=== PATIENT | female | born 1940 | race Two or more races ===

== ENCOUNTER → 2017-09-11 | Day surgery (SDC) | payer MEDICARE, MEDICAID ==
[~2017-09-11] MED LIST: CEFAZOLIN SODIUM/DEXTROSE,ISO 50 ML IV ONE; FENTANYL PF 100MCG/2ML AMPUL ONE; LIDOCAINE 0.5% HCL 50 ML VIAL ONE; MIDAZOLAM HCL 2 MG/2ML VIAL ONE; ONDANSETRON HCL/PF 4 MG/2 ML VIAL ONE
[2017-09-11 07:10] LABS: BASOPHILS % (AUTO) 0.4 % (0.0-2.0); EOSINOPHILS # (AUTO) 0.1 /CMM (0.0-0.7); EOSINOPHILS % (AUTO) 1.5 % (0.0-6.0); HEMATOCRIT 33 % (33-45); HEMOGLOBIN 10.4 g/dL (11.5-14.8); LYMPHOCYTES # (AUTO) 2.8 /CMM (0.8-4.8); LYMPHOCYTES % (AUTO) 29.4 % (20.0-44.0); MEAN CORPUSCULAR HEMOGLOBIN 23 PG (26.0-33.0); MEAN CORPUSCULAR HGB CONC 32 g/dl (31.0-36.0); MEAN CORPUSCULAR VOLUME 74 fL (82-100); MONOCYTES # (AUTO) 0.8 /CMM (0.1-1.30); MONOCYTES % (AUTO) 8.4 % (2.0-12.0); NEUTROPHILS # (AUTO) 5.7 /CMM (1.8-8.9); NEUTROPHILS % (AUTO) 60.3 % (43.0-81.0); PLATELET COUNT (AUTO) 389 /CMM (150-450); RDW COEFFICIENT OF VARIATION 17.6 (11.5-15.0); RED BLOOD CELL COUNT(AUTO) 4.46 MIL/uL (4.0-5.2); WHITE BLOOD COUNT (AUTO) 9.5 K/uL (4.3-11.0)
[2017-09-11 07:24] LABS: CALCIUM, SERUM 9.3 mg/dL (8.5-10.1); CARBON DIOXIDE 23 mmol/L (21-32); CHLORIDE 103 mmol/L (98-107); GLUCOSE 89 mg/dL (74-106); POTASSIUM 4.1 mmol/L (3.5-5.1); SODIUM SERUM 136 mmol/L (136-145); UREA NITROGEN, BLOOD 20 mg/dL (7-18)
[2017-09-11 07:29] LABS: INR 0.97 (0.87-1.13); PROTHROMBIN TIME 10.1 SECS (9.5-12.7)
[2017-09-11 10:57] LABS: EOSINOPHILS % (MANUAL) 1 % (0-4); LYMPHOCYTES % (MANUAL) 25 % (16-48); MONOCYTES % (MANUAL) 13 % (0-11.0); NEUTROPHILS % (MANUAL) 61 (42-76)
== END | disposition home or self-care (01) ==
LOC: DS 06:01
PROVIDERS: ATTEND Specialist
DX: M75.111 Incomplete rotator cuff tear or rupture of right shoulder, not specified as traumatic (principal); M75.41 Impingement syndrome of right shoulder; M65.811 Other synovitis and tenosynovitis, right shoulder; M75.81 Other shoulder lesions, right shoulder; M19.011 Primary osteoarthritis, right shoulder; I10 Essential (primary) hypertension; E11.9 Type 2 diabetes mellitus without complications; E78.5 Hyperlipidemia, unspecified; G47.30 Sleep apnea, unspecified; I25.10 Atherosclerotic heart disease of native coronary artery without angina pectoris; Z86.2 Personal history of diseases of the blood and blood-forming organs and certain disorders involving the immune mechanism; Z90.710 Acquired absence of both cervix and uterus; Z98.890 Other specified postprocedural states; Z88.0 Allergy status to penicillin; Z88.8 Allergy status to other drugs, medicaments and biological substances
CPT/HCPCS: 23412; 29820; 29823; 29824; 29826; 36415; 80048; 82962 ×2; 85025; 85610; 85730; 86850; 86921 ×2; 88304; 88305; 88311; A4217; A6253; C1713; J0690 ×2; J1100; J1885; J2250; J2405 ×2; J2704; J3010 ×2; J3490 ×2

== ENCOUNTER 2019-05-19 11:12 | Emergency (ER) | payer MEDICARE, MEDICAID ==
[~2019-05-19] VITALS: Ht 160 cm; Wt 64.9 kg
[2019-05-19 11:19] VITALS: BP 114/64
--- NOTE | 2019-05-19 11:22 | NUR ---
[facility] TO ER AFTER A GLF, NO KO. THE PATIENT C/O LEFT SHOULDER PAIN
[2019-05-19] MEDS ORDERED: TRAMADOL HCL 50 MG TABLET PO ONE (11:30)
[2019-05-19] MEDS ORDERED: TRAMADOL HCL 50 MG TABLET ONE (11:39)
== END 2019-05-19 14:06 | disposition home or self-care (01) ==
LOC: ER 11:14
DX: S42.292A Other displaced fracture of upper end of left humerus, initial encounter for closed fracture (principal); S09.8XXA Other specified injuries of head, initial encounter; M79.645 Pain in left finger(s); R51 Headache; R41.82 Altered mental status, unspecified; I10 Essential (primary) hypertension; E11.9 Type 2 diabetes mellitus without complications; E78.5 Hyperlipidemia, unspecified; Z96.611 Presence of right artificial shoulder joint; Z96.651 Presence of right artificial knee joint; Z88.5 Allergy status to narcotic agent; W01.198A Fall on same level from slipping, tripping and stumbling with subsequent striking against other object, initial encounter; Y93.89 Activity, other specified; Y92.89 Other specified places as the place of occurrence of the external cause; Y99.8 Other external cause status
CPT/HCPCS: 70450-TC; 72125-TC; 73020; 73140-TC